=== PATIENT | female | born 1985 | race Caucasian/White ===

== ENCOUNTER 2018-01-04 17:19 | Emergency (ER) | payer MEDICAID, OTHER ==
[2018-01-04 17:19] VITALS: BMI 22.4
[2018-01-04 17:27] VITALS: BP 115/75; PULSE 82; RESP 18; TEMP 97.7; O2SAT 100
--- NOTE | 2018-01-04 19:29 | C.PDOC ---
History Of Present Illness 32 year old female presents to the ED for evaluation of a sensation of having food stuck in her throat for the past week. Patient reports that after eating a piece of sausage the sensation of having food stuck in her throat lasted for a day. Today at 17:00 after eating boneless chicken, patient felt food was moving up and down in esophagus and mildly painful. Patient denies having any trouble breathing, states she is able to swallow liquids, is not vomiting after drinking fluids. Patient denies nausea, vomit, diarrhea, abdominal pain. Time Seen by Provider: 01/04/18 18:26 Chief Complaint (Nursing): ENT Problem History Per: Patient History/Exam Limitations: no limitations Onset/Duration Of Symptoms: Days Current Symptoms Are (Timing): Still Present Recent travel outside of the [place]: No Additional History Per: Patient Past Medical History Reviewed: Historical Data, Nursing Documentation, Vital Signs Vital Signs: Last Vital Signs Temp 97.7 F 01/04/18 17:23 Pulse 82 01/04/18 17:23 Resp 18 01/04/18 17:23 BP 115/75 01/04/18 17:23 Pulse Ox 100 01/06/18 02:31 - Medical History PMH: No Chronic Diseases Surgical History: No Surg Hx - [facility] Procedures DELIVERY OF PRODUCTS OF CONCEPTION, EXTERNAL APPROACH (07/06/16) INDUCT LABOR-RUPT MEMB (10/14/14) INTRODUCTION OF OTH HORMONE INTO PERIPH VEIN, PERC APPROACH (07/06/16) MANUAL ASSIST DELIV NEC (10/14/14) SURG INDUCT LABOR NEC (10/14/14) Family History: States: Unknown Family Hx - Social History Hx Alcohol Use: No Hx Substance Use: No - Immunization History Hx Tetanus Toxoid Vaccination: No Hx Influenza Vaccination: Yes Hx Pneumococcal Vaccination: No Review Of Systems Constitutional: Negative for: Fever, Chills ENT: Negative for: Ear Pain, Ear Discharge Cardiovascular: Negative for: Chest Pain, Palpitations Respiratory: Negative for: Cough Gastrointestinal: Negative for: Nausea, Vomiting, Abdominal Pain Skin: Negative for: Rash Neurological: Negative for: Weakness, Numbness Physical Exam - Physical Exam Appears: Non-toxic, No Acute Distress Skin: Normal Color, Warm, Dry Head: Atraumatic, Normacephalic Eye(s): bilateral: Normal Inspection Nose: No Discharge, No Deformity Oral Mucosa: Moist Throat: Normal, No Erythema, No Exudate, Other (no tracheal tenderness) Neck: Normal ROM, No Supple Chest: Symmetrical, No Tenderness Cardiovascular: Rhythm Regular, No Murmur Respiratory: Normal Breath Sounds, No Rales, No Rhonchi, No Stridor, No Wheezing Gastrointestinal/Abdominal: Soft, No Tenderness, No Guarding, No Rebound Neurological/Psych: Oriented x3, Normal Speech, Normal Cognition ED Course And Treatment O2 Sat by Pulse Oximetry: 100 (On RA) Pulse Ox Interpretation: Normal Medical Decision Making Medical Decision Making: Plan: * Tylenol 650 mg PO Case was discussed with Dr. Stallworth ( taking calls for Dr. Montes); recommended PPI and outpatient endoscopy. Patient is able to swallow Tylenol given in the ED and appears in no acute respiratory distress. Disposition Counseled Patient/Family Regarding: Diagnosis, Need For Followup - Disposition Referrals: Osorio Montes MD [Staff Provider] - Ramiro Houser MD [Medical Doctor] - Disposition: HOME/ ROUTINE Disposition Time: 19:29 Condition: GOOD Additional Instructions: Please eat soft, easy to swallow foods, in the next few days. Take pantoprozole as prescribed. FOllow up with either Dr Houser or Dr Montes in the soonest appointment. Return to ER for any choking, vomiting, unable to swallow fluids, difficulty breathing or any other concern. Prescriptions: Pantoprazole [Protonix EC Tab] 40 mg PO DAILY #30 ect Instructions: Dysphagia Forms: [facility] (Nepali), General Discharge Instructions - Clinical Impression Clinical Impression: Dysphagia - PA / INTAKE RN / Resident Statement MD/DO has reviewed & agrees with the documentation as recorded. - Scribe Statement The provider has reviewed the documentation as recorded by the Scribe Sabas Ortega All medical record entries made by the Scribbrannon were at my direction and personally dictated by me. I have reviewed the chart and agree that the record accurately reflects my personal performance of the history, physical exam, medical decision making, and the department course for this patient. I have also personally directed, reviewed, and agree with the discharge instructions and disposition.
== END 2018-01-04 19:55 | disposition home or self-care (01) ==
LOC: C.ER 17:19
DX: R13.10 Dysphagia, unspecified (principal)

== ENCOUNTER 2018-02-03 09:18 | Day surgery (SDC) | payer OTHER ==
[2018-02-03 09:58] VITALS: O2SAT 100
[2018-02-03] MEDS ORDERED: Propofol 10 mg/ml Inj (20 ML) ONE (10:11)
[2018-02-03] MEDS ORDERED: Lactated Ringer's 1,000 ML IV ONE (10:15)
--- NOTE | 2018-02-03 10:20 | CP.SDSHP ---
Same Day Surgery H & P - History Proposed Procedure: Egd with possible balloon dilatation Pre-Op Diagnosis: Dysphagia. abnormal esophagram - Previous Medical/Surgical History Previous Surgical History: tubal ligation - Allergies Allergies: Allergies No Known Allergies Allergy (Verified 02/03/18 09:40) - Physical Exam General Appearance: Thin W female with normal dentition Vital Signs: Vital Signs 02/03/18 09:30 Temperature 97.3 F L Pulse Rate 63 Respiratory 16 Rate Blood Pressure 103/73 O2 Sat by Pulse 100 Oximetry Mental Status: Alert & Oriented x3 Neuro: WNL Heart: WNL Lungs: WNL GI: WNL - Impression Impression: dysphagia. abnormal esophagram Pt. Evaluated Today:Candidate for Anesthesia & Procedure: Yes - Date & Time Date: 02/03/18 Time: 10:20 Short Stay Discharge - Short Stay Discharge Admitting Diagnosis/Reason for Visit: ABNORMAL FINDINGS ON DX IMAGING OF PRT DIGESTIVE T Disposition: HOME/ ROUTINE
[2018-02-03] MEDS ORDERED: Atropine Sulfate 0.4 mg/ml (0.8mg/2ml) Syringe IV ONE (10:22)
[2018-02-03] MEDS ORDERED: Pantoprazole 40 mg EC Tab PO STA ×2 (10:22→11:31)
[2018-02-03] MEDS ORDERED: Lidocaine Hydrochloride 5 ML INJ ONE (10:28)
[2018-02-03 15:18] VITALS: TEMP 98.6
[2018-02-03 15:29] VITALS: BP 119/59; PULSE 62; RESP 15
== END 2018-02-03 11:55 | disposition home or self-care (01) ==
LOC: C.ENDO 09:18
PROVIDERS: ATTEND Internal Medicine Gastroenterology
DX: R13.10 Dysphagia, unspecified (principal); R93.3 Abnormal findings on diagnostic imaging of other parts of digestive tract; R63.4 Abnormal weight loss; K21.9 Gastro-esophageal reflux disease without esophagitis; K44.9 Diaphragmatic hernia without obstruction or gangrene; K29.70 Gastritis, unspecified, without bleeding
CPT/HCPCS: 43239; 84703; 88305; J2001; J2704; J3010; J7120